=== PATIENT | male | born 1970 | race Caucasian/White ===

== ENCOUNTER 2025-07-21 08:37 | Outpatient (CLI) | payer OTHER ==
[2025-07-21] MEDS ORDERED: Iopamidol 370 76% 100 ML VIAL ONE (11:47)
== END 2025-07-21 08:38 | disposition home or self-care (01) ==
LOC: CT 08:37
PROVIDERS: ATTEND Surgery
DX: K57.92 Diverticulitis of intestine, part unspecified, without perforation or abscess without bleeding (principal); R14.3 Flatulence
CPT/HCPCS: 74177; Q9967